=== PATIENT | female | born 1985 | race Two or more races ===

== ENCOUNTER 2024-01-08 12:10 | Outpatient (CLI) | payer OTHER ==
[~2024-01-08 12:10] MED LIST: FOLIC ACID20 MG PO; PROMETRIUM200 MG PO
== END 2024-01-08 12:11 | disposition home or self-care (01) ==
LOC: PRENATAL 12:10
PROVIDERS: ATTEND Obstetrics & Gynecology Maternal & Fetal Medicine
DX: O35.9XX0 Maternal care for (suspected) fetal abnormality and damage, unspecified, not applicable or unspecified (principal); O35.3XX0 Maternal care for (suspected) damage to fetus from viral disease in mother, not applicable or unspecified; O44.02 Complete placenta previa NOS or without hemorrhage, second trimester; O09.522 Supervision of elderly multigravida, second trimester; Z3A.20 20 weeks gestation of pregnancy

== ENCOUNTER 2024-01-14 16:24 | Emergency (ER) | payer OTHER ==
[~2024-01-14] VITALS: Ht 157.5 cm; Wt 114.3 kg
[2024-01-14] MEDS ORDERED: ADULT LOW DOSE81 M1 (16:50)
[2024-01-14] MEDS ORDERED: PRENATABS RX T1 EACH (16:50)
== END 2024-01-14 19:24 | disposition home or self-care (01) ==
LOC: ER 16:25
DX: O26.892 Other specified pregnancy related conditions, second trimester (principal); Z3A.21 21 weeks gestation of pregnancy; J06.9 Acute upper respiratory infection, unspecified; Z91.013 Allergy to seafood; Z20.822 Contact with and (suspected) exposure to COVID-19

== ENCOUNTER → 2024-03-03 10:05 | Outpatient (CLI) | payer OTHER ==
[~2024-03-03 10:05] MED LIST changes: +ADULT LOW DOSE81 M1; +PRENATABS RX T1 EACH
== END | disposition home or self-care (01) ==
LOC: PRENATAL 10:05
PROVIDERS: ATTEND Obstetrics & Gynecology Maternal & Fetal Medicine
DX: O26.849 Uterine size-date discrepancy, unspecified trimester (principal); O09.529 Supervision of elderly multigravida, unspecified trimester; O99.210 Obesity complicating pregnancy, unspecified trimester; Z3A.28 28 weeks gestation of pregnancy

== ENCOUNTER 2024-04-11 08:29 | Outpatient (CLI) | payer OTHER | END 2024-04-11 08:30 | disposition home or self-care (01) | LOC: PRENATAL 08:29 | PROVIDERS: ATTEND Obstetrics & Gynecology Maternal & Fetal Medicine | DX: O26.849 Uterine size-date discrepancy, unspecified trimester (principal); O36.8199 Decreased fetal movements, unspecified trimester, other fetus; O09.529 Supervision of elderly multigravida, unspecified trimester; O99.210 Obesity complicating pregnancy, unspecified trimester; Z3A.34 34 weeks gestation of pregnancy ==

== ENCOUNTER 2024-05-15 13:45 | Inpatient (IN) | payer OTHER ==
[~2024-05-15] VITALS: Ht 157.5 cm; Wt 2.3 kg
[2024-05-20] MEDS ORDERED: FOLIC ACID20 MG (20:08)
[2024-05-21 11:14] LABS: INR < 0.93; PROTHROMBIN TIME 10.2 SECONDS (9.0-11.5)
[2024-05-21 11:42] LABS: ALBUMIN 2.2 gm/dL (3.4-5.0); BILIRUBIN TOTAL 0.11 mg/dL (0.3-1.2); CREATININE SERUM 0.8 mg/dL (0.55-1.02); GFR 79.85; GLOBULINA 4.3 G/DL (2.4-3.5); POTASSIUM 4.05 mEq/L (3.5-5.1); TOTAL PROTEIN 6.5 gm/dL (6.4-8.2)
[2024-05-23 05:45] VITALS: BP 116/79
[2024-05-23] MEDS ORDERED: OXYTOCIN 10 UNITS/ML VIAL ONE (06:52)
[2024-05-23] MEDS ORDERED: ERYTHROMYCIN BASE OPHT 1GM EACH TUBE OP ONE ×2 (06:52→09:15)
[2024-05-23] MEDS ORDERED: CEFAZOLIN SODIUM 1,000 MG VIAL ONE (07:07)
[2024-05-23] MEDS ORDERED: OXYTOCIN 20 UNITS/1000ML RL PIGGYBAG IV ONE (09:15)
[2024-05-23] MEDS ORDERED: MEPERIDINE HCL/PF 50 MG/ML VIAL IM PRN (09:15)
[2024-05-23] MEDS ORDERED: PROMETHAZINE HCL 50 MG/ML AMPUL IM PRN (09:15)
[2024-05-23] MEDS ORDERED: CEFAZOLIN SODIUM 1,000 MG VIAL IV SCH ×2 (09:15→14:00)
[2024-05-23] MEDS ORDERED: MORPHINE SULFATE 4 MG/ML VIAL IV ONE ×2 (09:55→10:55)
[2024-05-23] MEDS ORDERED: PROMETHAZINE HCL 50 MG/ML AMPUL IM ONE ×2 (13:24→13:30)
[2024-05-23] MEDS ORDERED: MEPERIDINE HCL 50 MG/ML AMPUL IM ONE (13:30)
[2024-05-23 17:07] VITALS: BP 139/89
[2024-05-24 00:28] VITALS: BP 124/68
[2024-05-24 02:43] LABS: HEMATOCRIT 33.2 % (36.0-45.00); HEMOGLOBIN 11.2 g/dL (12.0-15.00); MEAN CELL VOLUME 82.1 fL (80.00-100.00); MEAN CORPUSCULAR HEMOGLOBIN 27.8 pg (27.00-32.0); MEAN CORPUSCULAR HGB CONC 33.9 g/dl (32.0-36.0); PLATELET COUNT 138 K/uL (150-450); RED BLOOD COUNT 4.04 M/uL (4.00-6.00); RED CELL DISTRIBUTION WIDTH 18.2 % (11.5-14.5)
[2024-05-24 05:51] VITALS: BP 141/76
[2024-05-24 08:00] VITALS: BP 121/82
[2024-05-24] MEDS ORDERED: IBUprofen 800 MG TABLET PO PRN (08:45)
[2024-05-24] MEDS ORDERED: KETOROLAC TROMETHAMINE 30 MG VIAL IM ONE (08:45)
[2024-05-24 16:00] VITALS: BP 120/78
[2024-05-25] VITALS: BP 120/79
[2024-05-25 09:00] VITALS: BP 130/82
[2024-05-25 17:44] VITALS: BP 132/88
[2024-05-26] VITALS: BP 103/62
[2024-05-26 08:00] VITALS: BP 127/84
== END 2024-05-26 11:23 | disposition home or self-care (01) | DRG 787 ==
LOC: O/R 05-23 05:25 → LDR 05-23 09:00 → OB/GYN 05-23 14:43
PROVIDERS: ADMIT Specialist; ATTEND Specialist
PROC: 4A1HXCZ Monitoring of Products of Conception, Cardiac Rate, External Approach (ICD-10-PCS; 2024-05-23)
PROC: 10D00Z1 Extraction of Products of Conception, Low, Open Approach (ICD-10-PCS; principal; 2024-05-23 09:00)
DX: O33.8 Maternal care for disproportion of other origin (principal); O41.03X0 Oligohydramnios, third trimester, not applicable or unspecified; O99.824 Streptococcus B carrier state complicating childbirth; Z3A.39 39 weeks gestation of pregnancy; Z37.0 Single live birth

== ENCOUNTER 2024-05-20 19:37 | Outpatient (CLI) | payer OTHER ==
[~2024-05-20] VITALS: Ht 157.5 cm; Wt 122.5 kg
[2024-05-20 19:36] VITALS: BP 118/73; BP 118/74
[2024-05-20] MEDS ORDERED: RINGERS SOLUTION,LACTATED 1,000 ML IV SCH (20:00)
[2024-05-20] MEDS ORDERED: FOLIC ACID20 MG (20:08)
[2024-05-20 20:36] LABS: PH,URINE 5.5 (5.0-8.0); URINE APPEARANCE Cloudy; URINE BILIRRUBIN Negative (NEGATIVE); URINE BLOOD Negative; URINE COLOR Yellow; URINE GLUCOSE Negative (NEGATIVE); URINE KETONE Negative (NEGATIVE); URINE LEUKOCYTE Negative; URINE NITRATE Negative; URINE PROTEIN Trace (NEGATIVE); URINE UROBILINOGEN 0.2 E.U./dl
[2024-05-20 20:37] LABS: HEMATOCRIT 37.7 % (36.0-45.00); HEMOGLOBIN 12.8 g/dL (12.0-15.00); MEAN CORPUSCULAR HEMOGLOBIN 27.8 pg (27.00-32.0); MEAN CORPUSCULAR HGB CONC 33.9 g/dl (32.0-36.0); PLATELET COUNT 160 K/uL (150-450); RED BLOOD COUNT 4.59 M/uL (4.00-6.00); RED CELL DISTRIBUTION WIDTH 17.9 % (11.5-14.5)
[2024-05-20 20:40] LABS: URINE WBC 12.8 uL (0.0-23.2)
[2024-05-20 20:50] LABS: URINE EPITHELIAL CELLS > 201.7 uL (0.0-38.8)
[2024-05-20 23:17] VITALS: BP 116/77
[2024-05-21 03:26] VITALS: BP 115/78
[2024-05-21 07:11] VITALS: BP 107/70; O2SAT 100
[2024-05-21 08:54] VITALS: BP 107/70
== END 2024-05-21 09:53 | disposition home or self-care (01) ==
LOC: OBS/DEL 19:37
PROVIDERS: ATTEND Specialist
DX: O26.893 Other specified pregnancy related conditions, third trimester (principal); S80.00XA Contusion of unspecified knee, initial encounter; S60.229A Contusion of unspecified hand, initial encounter; S70.00XA Contusion of unspecified hip, initial encounter; W10.0XXA Fall (on)(from) escalator, initial encounter; Z3A.39 39 weeks gestation of pregnancy

== ENCOUNTER 2024-05-31 00:22 | Emergency (ER) | payer OTHER ==
[~2024-05-31] VITALS: Ht 157.5 cm; Wt 122.5 kg
[~2024-05-31 00:22] MED LIST changes: +FOLIC ACID20 MG
[2024-05-31] MEDS ORDERED: RINGERS SOLUTION,LACTATED 1,000 ML IV STA (09:00)
[2024-05-31] MEDS ORDERED: BUTALB/ACETAMINOPHEN/CAFFEINE 1 TAB TABLET PO STA (09:34)
[2024-05-31] MEDS ORDERED: BUTALB/ACETAMINOPHEN/CAFFEINE 1 TAB TABLET PO ONE (09:44)
== END 2024-05-31 12:46 | disposition home or self-care (01) ==
LOC: ER 00:25
DX: R51.9 Headache, unspecified (principal); Z91.013 Allergy to seafood

== ENCOUNTER 2025-03-21 10:26 | Emergency (ER) | payer OTHER ==
[~2025-03-21] VITALS: Ht 157.5 cm; Wt 122.5 kg
[2025-03-21] MEDS ORDERED: ENDOMETRIN100 MG VAG (12:12)
[2025-03-21] MEDS ORDERED: PRENATAL + DHA1 EAC1 PO (12:12)
[2025-03-21] MEDS ORDERED: 0.9 % SODIUM CHLORIDE 1,000 ML IV SCH (12:45)
[2025-03-21 14:03] LABS: BASO % 0.5 % (0.1-1.2); EOS # 0.18 (0.04-0.54); EOS % 2.7 % (0.7-7.0); LYMPH # 1.70 (1.18-3.74); LYMPH % 25.6 % (19.3-53.1); MEAN PLATELET VOLUME 11.90 fl (9.4-12.4); MONO # 0.36 (0.24-0.82); MONO % 5.4 % (4.7-12.5); NEUT # 4.34 (1.56-6.13); NEUT % 65.5 % (34.0-71.1); RED CELL DISTRIBUTION WIDTH 14.6 % (11.6-14.4)
[2025-03-21 14:33] LABS: INR 0.98
[2025-03-21 15:24] LABS: URINE APPEARANCE Clear; URINE BILIRRUBIN Negative (NEGATIVE); URINE BLOOD NHT; URINE COLOR Yellow; URINE GLUCOSE Negative (NEGATIVE); URINE KETONE Negative (NEGATIVE); URINE LEUKOCYTE Negative; URINE NITRATE Negative; URINE PROTEIN Negative (NEGATIVE); URINE UROBILINOGEN 0.2 E.U./dl
[2025-03-21 15:29] LABS: URINE BACTERIA 292.7 uL (0.0-1933); URINE CAST 1.46 uL (0.0-1.40); URINE EPITHELIAL CELLS 26.2 uL (0.0-38.8); URINE RBC 7.1 uL (0.0-20.8)
[2025-03-21 15:30] LABS: TYPE CELLS SQUAMOUS; URINE WBC 0.6 uL (0.0-23.2)
== END 2025-03-21 17:23 | disposition home or self-care (01) ==
LOC: ER 10:26
PROVIDERS: Physician Assistant Medical
DX: O26.891 Other specified pregnancy related conditions, first trimester (principal); Z91.013 Allergy to seafood; Z3A.08 8 weeks gestation of pregnancy; R10.21 Pelvic and perineal pain right side

== ENCOUNTER 2025-04-09 11:32 | Inpatient (IN) | payer OTHER ==
[~2025-04-09] VITALS: Ht 162.6 cm; Wt 104.3 kg
[~2025-04-09 11:32] MED LIST changes: +ENDOMETRIN100 MG VAG; +PRENATAL + DHA1 EAC1 PO
--- NOTE | 2025-04-09 13:15 | NUR ---
PACIENTE ALERTA Y ORIENTADO X3 CON 9 SEMANAS DE EMBARAZO REFIERE SANGRADO VAGINAL EN EL CORNEL DE HO[place]. SE MIDE S/V Y SE UBICA EN CAMA PARA SER EVALUADO.
[2025-04-09] MEDS ORDERED: ACETAMINOPHEN 500 MG GEL..CAP PO ONE ×2 (14:00→15:01)
[2025-04-09 15:13] LABS: BASO % 0.2 % (0.1-1.2); EOS # 0.12 (0.04-0.54); EOS % 1.4 % (0.7-7.0); LYMPH # 1.86 (1.18-3.74); LYMPH % 21.9 % (19.3-53.1); MEAN PLATELET VOLUME 11.00 fl (9.4-12.4); MONO # 0.30 (0.24-0.82); MONO % 3.5 % (4.7-12.5); NEUT # 6.18 (1.56-6.13); NEUT % 72.8 % (34.0-71.1); RED CELL DISTRIBUTION WIDTH 14.5 % (11.6-14.4)
[2025-04-09 16:05] LABS: BUN CREA RATIO 9.0 (7.0-25.0); CREATININE SERUM 0.78 mg/dL (0.55-1.02); GFR 82.22; GLUCOSE FASTING 88.0 mg/dL (65-100); OSMOLALITY SERUM 277.0 MOSM/KG (275-295)
[2025-04-09 16:35] LABS: URINE APPEARANCE Clear; URINE BILIRRUBIN Negative (NEGATIVE); URINE BLOOD Large; URINE COLOR Yellow; URINE GLUCOSE Negative (NEGATIVE); URINE KETONE 15 (NEGATIVE); URINE LEUKOCYTE Small; URINE NITRATE Negative; URINE PROTEIN Negative (NEGATIVE); URINE UROBILINOGEN 0.2 E.U./dl
[2025-04-09 16:36] LABS: URINE BACTERIA 916.2 uL (0.0-1933); URINE EPITHELIAL CELLS 22.5 uL (0.0-38.8); URINE RBC 42.7 uL (0.0-20.8); URINE WBC 59.7 uL (0.0-23.2)
--- NOTE | 2025-04-09 16:37 | NUR ---
PACIENTE SE CHRISTOPHER MUESTRAS ORDENADAS, SE ENVIAN A LABORATORIO, ESPERA SER REEVALUADA POR .
[2025-04-09] MEDS ORDERED: FAMOTIDINE/PF 20 MG in 0.9 % SODIUM CHLORIDE 100 ML IV SCH (18:09)
[2025-04-09 18:13] LABS: URINE CAST 0.00 uL (0.0-1.40)
[2025-04-09] MEDS ORDERED: CEFAZOLIN SODIUM 1,000 MG VIAL IV ONE ×2 (18:15)
[2025-04-09] MEDS ORDERED: ONDANSETRON HCL 4 MG in 0.9 % SODIUM CHLORIDE 50 ML IV PRN (18:15)
[2025-04-09] MEDS ORDERED: CEFAZOLIN SODIUM 1,000 MG VIAL ONE (19:16)
[2025-04-09] MEDS ORDERED: FAMOTIDINE/PF 20 MG/2 ML VIAL ONE (19:16)
[2025-04-09 19:30] VITALS: BP 130/90
[2025-04-09 19:40] LABS: INR 1.03
[2025-04-09 19:49] LABS: RH POSITIVE
[2025-04-09] MEDS ORDERED: ACETAMINOPHEN 500 MG GEL..CAP PO SCH (20:00)
[2025-04-10] MEDS ORDERED: OXYTOCIN 1,000 ML IV SCH (06:45)
[2025-04-10 07:37] LABS: BASO % 0.1 % (0.1-1.2); EOS # 0.14 (0.04-0.54); EOS % 1.7 % (0.7-7.0); LYMPH # 1.48 (1.18-3.74); LYMPH % 18.4 % (19.3-53.1); MEAN PLATELET VOLUME 11.60 fl (9.4-12.4); MONO # 0.49 (0.24-0.82); MONO % 6.1 % (4.7-12.5); NEUT # 5.90 (1.56-6.13); NEUT % 73.5 % (34.0-71.1); RED CELL DISTRIBUTION WIDTH 14.6 % (11.6-14.4)
[2025-04-10 08:14] LABS: BUN CREA RATIO 11.0 (7.0-25.0); CREATININE SERUM 0.7 mg/dL (0.55-1.02); GFR 93.16; GLUCOSE FASTING 98.0 mg/dL (65-100); OSMOLALITY SERUM 280.0 MOSM/KG (275-295)
[2025-04-10 08:46] VITALS: BP 109/70; O2SAT 98
[2025-04-10] MEDS ORDERED: POVIDONE-IODINE 118 ML BOTT TOP ONE (12:22)
[2025-04-10] MEDS ORDERED: CEFAZOLIN SODIUM 1,000 MG VIAL ONE (13:01)
[2025-04-10] MEDS ORDERED: OXYTOCIN 10 UNITS/ML VIAL ONE ×2 (13:01→17:23)
[2025-04-10 18:29] VITALS: BP 117/82; O2SAT 100
[2025-04-10 20:18] VITALS: BP 103/69; O2SAT 100
[2025-04-10] MEDS ORDERED: CEFAZOLIN SODIUM 2,000 MG in 0.9 % SODIUM CHLORIDE 100 ML IV SCH (21:00)
== END 2025-04-10 21:11 | disposition home or self-care (01) | DRG 779 ==
LOC: ER 11:33 → SEC-K 18:51 → SURH 18:51
PROVIDERS: General Practice; Specialist; ADMIT Internal Medicine; ATTEND Internal Medicine
PROC: BY49ZZZ Ultrasonography of First Trimester, Single Fetus (ICD-10-PCS; 2025-04-09)
PROC: BU4CZZZ Ultrasonography of Uterus and Ovaries (ICD-10-PCS; 2025-04-09)
PROC: 3E033VJ Introduction of Other Hormone into Peripheral Vein, Percutaneous Approach (ICD-10-PCS; 2025-04-10)
PROC: 10D17Z9 Manual Extraction of Products of Conception, Retained, Via Natural or Artificial Opening (ICD-10-PCS; principal; 2025-04-10 19:00)
DX: O02.1 Missed abortion (principal); O26.851 Spotting complicating pregnancy, first trimester; O26.891 Other specified pregnancy related conditions, first trimester; R10.20 Pelvic and perineal pain unspecified side; O34.211 Maternal care for low transverse scar from previous cesarean delivery; O99.211 Obesity complicating pregnancy, first trimester; E66.9 Obesity, unspecified; O36.80X0 Pregnancy with inconclusive fetal viability, not applicable or unspecified; Z3A.10 10 weeks gestation of pregnancy